=== PATIENT | male | born 1975 | race Caucasian/White ===

== ENCOUNTER 2021-01-23 11:00 | Day surgery (SDC) | payer BC ==
[~2021-01-23 11:00] MED LIST: ATOM60CA PO; CLON1TAB PO; DEXAMETHASONE SOD PHOS 4 MG/ML VIAL ONE; LIDOCAINE 2% PF 5 ML VIAL. ONE; OMEP20TA63 PO; ONDANSETRON PF 4 MG/2 ML VIAL. ONE; OXYC1TAB15 PO; PROPOFOL 10 MG/ML (20ML) VIAL. IV ONE; SEVOFLURANE 61 TO 120 MINUTES. IH ONE; SUMA50TA3 PO; TAMS0.4C97 PO; TEST200V3 IM; fentaNYL PF VIAL 250 MCG/5 ML VIAL ONE
[2021-01-23] MEDS ORDERED: IV RINGERS,LACTATED 1000ML 1,000 ML IV SCH ×2 (11:45→14:45)
[2021-01-23] MEDS ORDERED: ACETAMINOPHEN 500 MG TABLET PO ONE (11:45)
[2021-01-23] MEDS ORDERED: ROPIVacaine 0.5% PF 20 ML VIAL. ONE (11:48)
[2021-01-23] MEDS ORDERED: BUPIVACAINE MPF 0.5% 30 ML VIAL. ONE (11:48)
[2021-01-23] MEDS ORDERED: OXYC1TAB19 PO (12:29)
--- NOTE | 2021-01-23 12:30 | DISCH ---
DISCHARGE INSTRUCTIONS Condition on Discharge Condition on Discharge: Stable Activity After Discharge Activity Instructions for Disc: Other, see below (Fine motor use permitted with left hand such as eating writing and typing to tolerance, gentle flexing extending the fingers including a soft stress ball) Weight Bearing Status after Di: Non weight bearing Diet after Discharge Diet after Discharge: Regular Wound Incision Care Wound/Incision Care: Ice to area for comfort, Keep wound elevated, Do not change dressing Contacting the [facility] after DC Call your doctor for: Concerns you may have Follow-Up Follow up with: Dr. Lane or Trisha [address] MD January 23, 2021 12:30
--- NOTE | 2021-01-23 14:10 | PDOC4 ---
Operative Note Operative Note Date of surgery: 01/23/2021 Preoperative diagnosis: Displaced 3 part intra-articular left distal radius fracture Postoperative diagnosis: Same with impaction and dorsal angulation Operative procedure: Operative reduction volar plate fixation of three-part intra-articular left distal radius fracture Surgeon: Ariana Assist: Negrito menjivar assist Anesthesia: General Estimated blood loss: 15 cc Complications: None Operative indications: Please see my orthopedic clinic note for detailed operative indications and note that I had reviewed with the patient the x-rays emphasizing the fragments communicating with the joint and are displaced and angulated. We talked about the desirability of restoring the anatomy of the joint as much as possible and the planned fixation with a volar plate and locking screws. The risks of potential infection nerve or blood vessel damage nonhealing and medical or other anesthetic complications. Even under the best of circumstances the possibility of some stiffness and pain with ongoing activity and premature arthritic change which we would hope to minimize much as possible by restoring the anatomy of the joint. He agrees to proceed with surgical evaluation and treatment Operative text: Patient was identified procedure verified patient placed in the supine position on the operating table. After adequate amounts of general anesthesia were administered the left upper extremity was prepped and draped in standard sterile fashion with an upper arm tourniquet after timeout was performed patient procedure identified and verified the left upper extremity was exsanguinated by Esmarch bandage tourniquet inflated to 300 mmHg and a volar Cody approach was carried out to the distal radius. Subperiosteal dissection was carried out under fluoroscopic guidance and a standard Yamilex volar distal locking plate was selected and placed under fluoroscopic guidance with a single shaft screw in a sliding hole to allow fine anatomic placement. Careful reduction was carried out of the intra-articular fragments under multiple fluoroscopic views with attention to the radial styloid which was reduced perfectly and the joint surface restored. A K wire was used for distal referencing and the plate to ensure good fixation of the locking screws without joint penetration. Distal locking screws were placed under fluoroscopic guidance followed by proximal row locking screws which achieved excellent fixation and essentially anatomic joint surface reconstruction. An additional nonlocking shaft screw and a locking shaft screw were placed for terminal fixation of the plate to the shaft and hardware placement checked under multiple fluoroscopic guidance. Thorough irrigation carried out with normal saline solution subcutaneous closure with buried 2-0 Vicryl sutures subcuticular closure with 3-0 Monocryl Steri-Strips and Mastisol were then applied followed by a well-padded volar Ortho-Glass splint. Fingers were noted be warm and pink following deflation of the tourniquet patient returned to recovery room in stable condition having tolerated the procedure well. Negrito bradley was present for the procedure and assisted in patient positioning prepping draping retraction closure and dressings MARIELA PLUNKETT MD January 23, 2021 14:10
[2021-01-23] MEDS ORDERED: oxyCODONE/APAP 7.5/325 1 TAB TABLET PO ONE (14:30)
[2021-01-23] MEDS ORDERED: PROCHLORPERAZINE 10 MG/2 ML VIAL. ONE (14:41)
[2021-01-23] MEDS ORDERED: MORPHINE SULFATE 2 MG/ML VIAL. IVP PRN (14:45)
[2021-01-23] MEDS ORDERED: HYDROmorphone 2 MG/ML VIAL IVP PRN (14:45)
[2021-01-23] MEDS ORDERED: fentaNYL PF VIAL 100 MCG/2 ML VIAL IVP PRN ×2 (14:45)
[2021-01-23] MEDS ORDERED: PROCHLORPERAZINE 10 MG/2 ML VIAL. IVP PRN (14:45)
[2021-01-23 14:58] VITALS: BP 127/73
== END 2021-01-23 15:30 | disposition home or self-care (01) ==
LOC: SURG 11:00
PROVIDERS: ATTEND Orthopaedic Surgery
DX: S52.572A Other intraarticular fracture of lower end of left radius, initial encounter for closed fracture (principal); K21.9 Gastro-esophageal reflux disease without esophagitis; F41.9 Anxiety disorder, unspecified; Z20.822 Contact with and (suspected) exposure to COVID-19; Z79.899 Other long term (current) drug therapy; Z98.890 Other specified postprocedural states; Z91.040 Latex allergy status; X58.XXXA Exposure to other specified factors, initial encounter; Y93.89 Activity, other specified; Y92.89 Other specified places as the place of occurrence of the external cause; Y99.8 Other external cause status
CPT/HCPCS: 25609; 87426; A4364; A4930; A6402; A6449; C1713; J0690; J0780; J1100; J2405; J2704; J3010; J3490; U0003; U0005; 76000; A4223; A4452; J2795